=== PATIENT | female | born 1965 | race African-American/Black ===

== ENCOUNTER 2018-10-16 19:42 | Emergency (ER) | payer MEDICAID ==
[~2018-10-16] VITALS: Ht 162.6 cm; Wt 61.0 kg
[2018-10-16] MEDS ORDERED: HYDROCODONE/ACETAMINOPHEN 5/325MG TABLET PO ONE (22:45)
[2018-10-16 23:07] VITALS: BP 155/87
== END 2018-10-16 23:08 | disposition home or self-care (01) ==
LOC: ER 19:42
DX: S00.81XA Abrasion of other part of head, initial encounter (principal); Y07.499 Other family member, perpetrator of maltreatment and neglect; Y04.8XXA Assault by other bodily force, initial encounter; Y93.89 Activity, other specified; Y92.098 Other place in other non-institutional residence as the place of occurrence of the external cause
CPT/HCPCS: 99283